=== PATIENT | male | born 1980 | race Two or more races ===

== ENCOUNTER 2020-12-30 08:37 | Inpatient (IN) | payer OTHER ==
[~2020-12-30] VITALS: Ht 167.6 cm; Wt 104.0 kg
[2020-12-30] MEDS ORDERED: LORA-1001 PO (09:35)
[2020-12-30 12:13] LABS: COVID AG,FIA SOURCE NASOPHARYNGEAL
[2020-12-30] MEDS ORDERED: ACETAMINOPHEN 325 MG TABLET PO PRN (12:15)
[2020-12-30] MEDS ORDERED: MAGNESIUM HYDROXIDE SUSPENSION 30 ML UDCUP PO PRN (16:30)
[2020-12-30] MEDS ORDERED: BISACODYL 10 MG RECTAL RECTAL SUPPOSITORY PR PRN (16:30)
[2020-12-30] MEDS ORDERED: ONDANSETRON HCL 4 MG/2 ML VIAL IVP PRN (16:30)
[2020-12-30] MEDS ORDERED: 0.9% SODIUM CHLORIDE 10 ML SYRINGE IVP PRN (16:30)
[2020-12-30] MEDS ORDERED: ALBUTEROL SULFATE 2.5 MG/0.5 ML NEB SOLUTION NEB PRN (16:30)
[2020-12-30] MEDS ORDERED: IPRATROPIUM BROMIDE 0.5 MG/2.5 ML NEB SOLUTION NEB PRN (16:30)
[2020-12-30 22:35] VITALS: BP 134/73
[2020-12-30 23:11] LABS: BASOPHILS % (AUTO) 0.2 % (0.0-2.0); EOSINOPHILS % (AUTO) 2.4 % (1.0-6.0); HEMATOCRIT 44.7 % (41-53); HEMOGLOBIN 14.9 g/dL (13.5-17.5); LYMPHOCYTES # (AUTO) 2.7 K/uL (1.0-4.8); LYMPHOCYTES % (AUTO) 19.3 % (22.0-44.0); MEAN CORPUSCULAR HEMOGLOBIN 29.8 pg (26.0-34.0); MEAN CORPUSCULAR HGB CONC 33.3 G/dL (31.0-37.0); MEAN CORPUSCULAR VOLUME 89 fL (80-100); MONOCYTES % (AUTO) 6.9 % (2.0-9.0); NEUTROPHILS % (AUTO) 71.2 % (40.0-70.0); PLATELET COUNT (AUTO) 391 K/uL (150-450); RED CELL DISTRIBUTION WIDTH 13.9 % (11.5-14.5)
[2020-12-30 23:19] LABS: ANION GAP 7 mmol/L (8-16); CALCIUM, TOTAL 8.8 mg/dL (8.8-10.5); CARBON DIOXIDE 31 mmol/L (22-29); CHLORIDE 102 mmol/L (98-107); CREATININE 0.92 mg/dL (0.60-1.30); GLOMERULAR FILTR. RATE CALC > 60 mL/min (>60); GLUCOSE,RANDOM 97 mg/dL (70-110); POTASSIUM 3.9 mmol/L (3.5-5.1); SODIUM SERUM 140 mmol/L (136-145); UREA NITROGEN, BLOOD 12 mg/dL (7-18)
[2020-12-30 23:25] LABS: ALANINE AMINOTRANSFERASE 34 U/L (12-78); ALBUMIN 3.6 g/dL (3.4-5.0); ALKALINE PHOSPHATASE 94 U/L (46-116); ASPARTATE AMINOTRANSFERASE 18 U/L (15-37); BILIRUBIN,TOTAL 0.3 mg/dL (0.1-1.0); TOTAL PROTEIN, SERUM 8.3 g/dL (6.4-8.2)
[2020-12-31] MEDS: ACETAMINOPHEN 325 MG TABLET PO PRN ×2 (04:04→12:31)
[2020-12-31 05:00] VITALS: BP 138/77
[2020-12-31 05:04] LABS: AMPHET/METH SCREEN,URINE POSITIVE (NEGATIVE); BARBITURATE SCREEN, URINE NEGATIVE (NEGATIVE); BENZODIAZEPINES SCREEN,URINE NEGATIVE (NEGATIVE); CANNABINOID SCREEN,URINE NEGATIVE (NEGATIVE); COCAINE SCREEN,URINE NEGATIVE (NEGATIVE); METHADONE SCREEN, URINE NEGATIVE (NEGATIVE); OPIATE SCREEN,URINE NEGATIVE (NEGATIVE)
[2020-12-31 05:11] LABS: PHENCYCLIDINE SCREEN,URINE NEGATIVE (NEGATIVE)
[2020-12-31 08:04] VITALS: BP 133/84
[2020-12-31] MEDS ORDERED: TraMADol HCL 50 MG TABLET PO PRN (14:00)
[2020-12-31] MEDS ORDERED: SODIUM CHLORIDE 0.9% 250 ML IV ONE (14:05)
[2020-12-31] MEDS ORDERED: VANCOMYCIN HCL 1 GM/D5% WATER 200 ML IV ONE (14:15)
[2020-12-31 16:06] VITALS: BP 148/83
[2020-12-31] MEDS: CefTRIAXone 1 GM/DEXTROSE 50 ML IV SCH (16:18)
[2020-12-31 19:57] VITALS: BP 132/73
[2020-12-31] MEDS: VANCOMYCIN HCL 1.25 GM in DEXTROSE 5%-WATER 250 ML IV SCH (23:58)
[2021-01-01] MEDS: ACETAMINOPHEN 325 MG TABLET PO PRN ×4 (01:52→18:02)
[2021-01-01 04:29] VITALS: BP 162/90
[2021-01-01 07:36] VITALS: BP 139/89
[2021-01-01] MEDS: VANCOMYCIN HCL 1.25 GM in DEXTROSE 5%-WATER 250 ML IV SCH ×2 (08:48→16:00)
[2021-01-01 08:49] LABS: ANION GAP 10 mmol/L (8-16); CALCIUM, TOTAL 8.7 mg/dL (8.8-10.5); CARBON DIOXIDE 28 mmol/L (22-29); CHLORIDE 102 mmol/L (98-107); CREATININE 0.91 mg/dL (0.60-1.30); GLOMERULAR FILTR. RATE CALC > 60 mL/min (>60); GLUCOSE,RANDOM 154 mg/dL (70-110); SODIUM SERUM 140 mmol/L (136-145); UREA NITROGEN, BLOOD 10 mg/dL (7-18)
[2021-01-01] MEDS ORDERED: DOXY-354 PO (15:08)
[2021-01-01 15:27] VITALS: BP 128/78
[2021-01-01] MEDS: CefTRIAXone 1 GM/DEXTROSE 50 ML IV SCH (16:00)
[2021-01-01] MEDS ORDERED: NICOTINE POLACRILEX 2 MG GUM CHEW ONE (18:30)
[2021-01-01 20:35] VITALS: BP 143/82
[2021-01-01 20:50] VITALS: BP 143/82
[2021-01-02] MEDS: ACETAMINOPHEN 325 MG TABLET PO PRN (01:33)
[2021-01-02 04:44] VITALS: BP 135/74
== END 2021-01-02 06:00 | DRG 897 ==
LOC: EMS 08:37 → 6S 16:24
PROVIDERS: ADMIT Internal Medicine; ATTEND Internal Medicine
DX: F13.939 Sedative, hypnotic or anxiolytic use, unspecified with withdrawal, unspecified (principal); R65.10 Systemic inflammatory response syndrome (SIRS) of non-infectious origin without acute organ dysfunction; R73.03 Prediabetes; F12.90 Cannabis use, unspecified, uncomplicated; Z20.822 Contact with and (suspected) exposure to COVID-19
CPT/HCPCS: 76881; 80048; 80053; 85025; 99285; J0696; J3370; J7050; J7060